=== PATIENT | female | born 1955 | race African-American/Black ===

== ENCOUNTER 2022-04-10 11:01 | Emergency (ER) | payer MEDICARE, OTHER ==
[~2022-04-10] VITALS: Ht 162.6 cm; Wt 71.2 kg
--- NOTE | 2022-04-10 11:05 | NUR ---
TO ER BED 9. [id number] HALFWAY C/O CHEST PAIN SINCE THIS MORNING, MISSED DIALYSIS TODAY. DESCRIBED PAIN BURNING, NON RADIATING, DENIES NAUSEA. PT ATTACHED TO MONITOR. AWAITING MD ORDERS.
[2022-04-10] MEDS ORDERED: AMLO-213 PO (11:39)
[2022-04-10] MEDS ORDERED: MINO2.5T PO (11:39)
[2022-04-10] MEDS ORDERED: ALBU18HF2 IH (11:39)
[2022-04-10] MEDS ORDERED: ASPI-1420 PO (11:39)
[2022-04-10] MEDS ORDERED: METO25TA20 PO (11:39)
[2022-04-10] MEDS ORDERED: APIX5TAB PO (11:39)
[2022-04-10] MEDS ORDERED: OXYC5TAB3 PO (11:39)
[2022-04-10] MEDS ORDERED: DOCU-270 PO (11:39)
[2022-04-10] MEDS ORDERED: LEVE500T9 PO (11:39)
[2022-04-10] MEDS ORDERED: ROSU5TAB PO (11:39)
[2022-04-10] MEDS ORDERED: SEVE800T8 PO (11:39)
[2022-04-10] MEDS ORDERED: CARV12.52 PO (11:39)
[2022-04-10] MEDS ORDERED: LATA2.5D15 RIGHTEYE (11:39)
[2022-04-10] MEDS ORDERED: PANT40TA2 PO (11:39)
--- NOTE | 2022-04-10 11:51 | NUR ---
COVID TEST COLLECTED AND SENT
[2022-04-10 12:27] LABS: BASOPHILS % (AUTO) 0.6 % (0.0-2.0); EOSINOPHILS % (AUTO) 7.6 % (0.0-6.0); HEMATOCRIT 24 % (33-45); HEMOGLOBIN 7.4 g/dL (11.5-14.8); LYMPHOCYTES # (AUTO) 2.1 K/uL (0.8-4.8); LYMPHOCYTES % (AUTO) 24.2 % (20.0-44.0); MEAN CORPUSCULAR HGB CONC 30 g/dl (31.0-36.0); MEAN CORPUSCULAR VOLUME 97 fL (82-100); MONOCYTES % (AUTO) 11.9 % (2.0-12.0); NEUTROPHILS # (AUTO) 4.9 K/uL (1.8-8.9); NEUTROPHILS % (AUTO) 55.7 % (43.0-81.0); PLATELET COUNT (AUTO) 162 K/uL (150-450); RED BLOOD CELL COUNT(AUTO) 2.51 MIL/uL (4.0-5.2); WHITE BLOOD COUNT (AUTO) 8.7 K/uL (4.3-11.0)
[2022-04-10 12:38] LABS: CALCIUM, SERUM 9.1 mg/dL (8.5-10.1); CARBON DIOXIDE 26 mmol/L (21-32); CHLORIDE 106 mmol/L (98-107); GLUCOSE 103 mg/dL (74-106); SODIUM SERUM 141 mmol/L (136-145); UREA NITROGEN, BLOOD 72 mg/dL (7-18)
[2022-04-10 12:44] LABS: ALANINE AMINOTRANSFERASE 16 U/L (12-78); ALBUMIN 3.2 g/dL (3.4-5.0); ALKALINE PHOSPHATASE 363 U/L (46-116); ASPARTATE AMINOTRANSFERASE 31 U/L (15-37); BILIRUBIN,DIRECT 0.1 mg/dL (0.0-0.2); BILIRUBIN,TOTAL 0.3 mg/dL (0.2-1.0); POTASSIUM 6.2 mmol/L (3.5-5.1)
[2022-04-10 12:45] LABS: CREATININE 11.2 mg/dL (0.6-1.3)
[2022-04-10] MEDS ORDERED: oxyCODONE IR immediate release 5 MG PO PRN (15:00)
[2022-04-10] MEDS ORDERED: ASPIRIN EC 81 MG TABLET.DR PO SCH (15:00)
[2022-04-10] MEDS ORDERED: AMLODIPINE BESYLATE 10 MG TABLET PO SCH (15:00)
[2022-04-10] MEDS ORDERED: LATANOPROST EYE DROP 0.005% 2.5 ML BOTTLE RIGHTEYE SCH (15:00)
[2022-04-10] MEDS ORDERED: CARVEDILOL 12.5 MG TABLET PO SCH (15:00)
[2022-04-10] MEDS ORDERED: DOCUSATE SODIUM 100 MG CAPSULE PO SCH (15:00)
[2022-04-10] MEDS ORDERED: ALBUTEROL SULFATE 8 GM HFA.AER.AD IH PRN (15:00)
[2022-04-10] MEDS ORDERED: SODIUM POLYSTYRENE SULFONATE 15 G/60 ML BOTTLE PO ONE (15:30)
[2022-04-10] MEDS ORDERED: MAGNESIUM HYDROXIDE 30 ML UDC PO PRN (15:30)
[2022-04-10] MEDS ORDERED: MAG HYDROX/AL HYDROX/SIMETH 30 ML UDC PO PRN (15:30)
[2022-04-10] MEDS ORDERED: ACETAMINOPHEN 325 MG TABLET PO PRN (15:30)
[2022-04-10] MEDS ORDERED: Z GUARD REMEDY 4 OZ OINT TP PRN (15:30)
[2022-04-10] MEDS ORDERED: ONDANSETRON HCL/PF 4 MG/2 ML VIAL IVP PRN (15:30)
[2022-04-10] MEDS ORDERED: APIXABAN 2.5 MG TABLET PO SCH (17:00)
[2022-04-10] MEDS ORDERED: LEVETIRACETAM (250 MG) 250 MG TABLET PO SCH (17:00)
[2022-04-10] MEDS ORDERED: METOPROLOL TARTRATE 25 MG TABLET PO SCH (17:00)
[2022-04-10 17:15] LABS: THYROID STIMULATING HORMONE 13.382 uIU/mL (0.358-3.74)
--- NOTE | 2022-04-10 17:56 | NUR ---
dr nieto called for peer to peer. left contact. number. [phone]
[2022-04-10] MEDS ORDERED: SEVELAMER CARBONATE 800 MG TABLET PO SCH (18:00)
[2022-04-10] MEDS ORDERED: METOPROLOL TARTRATE 50 MG TABLET PO SCH (18:00)
[2022-04-10 19:20] LABS: POTASSIUM 6.1 mmol/L (3.5-5.1)
[2022-04-10 19:24] LABS: CREATININE 11.4 mg/dL (0.6-1.3)
--- NOTE | 2022-04-10 21:08 | NUR ---
RECEIVED CALL FROM [facility] ADMITTING ER. [facility] AVAILABLE FOR PATIENT.
[2022-04-10] MEDS ORDERED: ATORVASTATIN 10 MG TABLET PO SCH (22:00)
--- NOTE | 2022-04-10 22:28 | NUR ---
ACCEPTED [facility] ETA 0030 UNDER JOSUE HIGGINS REPORT FOR REPORT [phone]
[2022-04-10 22:56] VITALS: BP 151/76
--- NOTE | 2022-04-10 23:11 | NUR ---
REPORT GIVEN TO FIDEL
--- NOTE | 2022-04-11 01:38 | NUR ---
BEDSIDE REPORT GIVEN TO [employer]N [employer]ER
--- NOTE | 2022-04-11 01:47 | NUR ---
PT TRANSPORTED BY [facility] IN STABLE CONDITION. PT CHART AND TRANSFER FORM PROVIDED TO [employer].
[2022-04-11] MEDS ORDERED: PANTOPRAZOLE 40 MG TABLET.DR PO SCH ×2 (07:30)
[2022-04-11] MEDS ORDERED: MINOXIDIL (2.5MG) 2.5 MG TABLET PO SCH (09:00)
== END 2022-04-11 01:50 | disposition short-term general hospital (02) ==
LOC: ER 12:04
DX: R07.9 Chest pain, unspecified (principal); E87.5 Hyperkalemia; I13.11 Hypertensive heart and chronic kidney disease without heart failure, with stage 5 chronic kidney disease, or end stage renal disease; N18.6 End stage renal disease; Z99.2 Dependence on renal dialysis; Z91.15 Patient's noncompliance with renal dialysis; Z86.718 Personal history of other venous thrombosis and embolism; H26.9 Unspecified cataract; Z79.01 Long term (current) use of anticoagulants; Z79.899 Other long term (current) drug therapy; D64.9 Anemia, unspecified; Z88.6 Allergy status to analgesic agent; Z88.0 Allergy status to penicillin; Z88.8 Allergy status to other drugs, medicaments and biological substances; Z20.822 Contact with and (suspected) exposure to COVID-19
CPT/HCPCS: 36415; 71045-TC; 80048-TC; 80076-TC; 83605-TC; 84439-TC; 84443-TC; 84484-TC; 85025-TC; 85730-TC; 87040-TC; 93307-TC; C9803